=== PATIENT | male | born 1955 | race African-American/Black ===

== ENCOUNTER 2021-02-17 15:15 | Emergency (ER) | payer OTHER ==
[~2021-02-17] VITALS: Ht 180.3 cm; Wt 104.0 kg
[2021-02-17 15:19] VITALS: BP 163/83
[2021-02-17 16:18] LABS: BASOPHILS % 1.1 % (0.0-2.0); EOSINOPHILS % 1.7 % (0.0-5.0); HEMATOCRIT. 42.7 % (42.0-52.0); HEMOGLOBIN. 14.1 g/dL (14.0-18.0); MEAN CORPUSCULAR HEMOGLOBIN 22.8 pg (28.0-32.0); MEAN CORPUSCULAR VOLUME 68.9 fL (80.0-94.0); MEAN PLATELET VOLUME 9.3 fl (7.4-10.4); MONOCYTES % 10.1 % (2.0-8.0); NEUTROPHILS % 36.1 % (40.0-76.0); PLATELET 197 x1000/uL (130-400); RED BLOOD CELL COUNT 6.21 mill/uL (4.7-6.1); RED CELL DISTRIBUTION WIDTH 14.8 % (11.6-14.6)
[2021-02-17 16:23] LABS: CHLORIDE 106 mEq/L (98-107)
[2021-02-17 16:27] LABS: ETHANOL BLOOD < 10 mg/dL
[2021-02-17 16:28] LABS: PROTHROMBIN TIME 10.9 sec (9.6-11.0)
[2021-02-17 16:31] LABS: LDL CHOLESTEROL 93 mg/dL (5-100)
[2021-02-17 16:55] LABS: PLATELET ESTIMATE NORMAL
[2021-02-17 17:16] LABS: CLARITY URINE CLEAR (CLEAR); COLOR URINE YELLOW (YELLOW); KETONES URINE NEGATIVE (NEGATIVE); LEUKOCYTE ESTERASE URINE NEGATIVE (NEGATIVE); NITRITE URINE NEGATIVE (NEGATIVE); OCCULT BLOOD URINE 1+ (NEGATIVE); PROTEIN URINE NEGATIVE (NEGATIVE); SPECIFIC GRAVITY URINE 1.037 (1.005-1.030)
[2021-02-17 17:30] LABS: *AMPHETAMINES SCREEN URINE NEGATIVE (NEGATIVE); *BARBITURATES SCREEN URINE NEGATIVE (NEGATIVE); *BENZODIAZEPINES SCREEN URINE NEGATIVE (NEGATIVE); *COCAINE SCREEN URINE NEGATIVE (NEGATIVE); METHADONE URINE SCREEN NEGATIVE (NEGATIVE); PHENCYCLIDINE URINE SCREEN NEGATIVE (NEGATIVE)
[2021-02-17 17:32] LABS: CANNABINOID URINE SCREEN NEGATIVE (NEGATIVE); OPIATES URINE SCREEN NEGATIVE (NEGATIVE)
[2021-02-17] MEDS ORDERED: IOHEXOL-350 100 ML BOTTLE ONE (18:43)
== END 2021-02-17 17:40 | disposition left against medical advice (07) ==
LOC: ER 15:15
DX: G45.9 Transient cerebral ischemic attack, unspecified (principal); Z53.29 Procedure and treatment not carried out because of patient's decision for other reasons; Z98.890 Other specified postprocedural states
CPT/HCPCS: 36415; 70450; 70496; 70498; 71045; 80053; 80305; 80320; 81003; 82962; 83721; 84484; 85025; 85610; 93005; 99285; Q9967; G0480